=== PATIENT | female | born 1975 | race Caucasian/White ===

== ENCOUNTER 2016-11-06 14:26 | Inpatient (IN) | payer OTHER ==
[2016-11-06 14:35] VITALS: BMI 35.6
[2016-11-06 16:54] LABS: BASOPHIL 0.4 % (0-2.0); EOSINOPHIL 0.6 % (0-4.5); MCH 24.2 pg (25.7-33.7); MCHC 30.6 g/dl (32.0-36.0); MEAN CELL VOLUME 79.1 fl (80-96); MEAN PLT VOLUME 8.6 fl (7.5-11.1); NEUTROPHILS 77.9 % (42.8-82.8); PLATELET COUNT 257 K/MM3 (134-434); RDW 16.2 % (11.6-15.6); WHITE BLOOD COUNT 13.4 K/mm3 (4.0-10.0)
[2016-11-06] MEDS ORDERED: SODIUM CHLORIDE 1,000 ML IV STA (16:58)
--- NOTE | 2016-11-06 16:58 | PDOC ---
History of Present Illness - General History Source: Patient, Old Records Exam Limitations: No Limitations <Mor Dhillon - Last Filed: 11/06/16 22:43> - History of Present Illness Initial Comments: 11/06/16 17:38 The patient is a 41 year old female, with a significant past medical history of cholecystectomy and pancreatitis, who presents to the emergency department sent by Dr. Gao for persistent abdominal pain since her discharge from the ED for similar complaint on 11/01/16. The patient states her pain is sharp and intermittent but reports the pain has been persistent in severity since her onset of pain about a week ago. The patient states her pain travels around her abdomen, and reports feeling both nauseous and bloated today. The patient was concerned about her pain and was seen at her PCP office where Dr. Gao referred the patient to the ED for further work-up to r.o appendicitis. She denies chest pain, shortness of breath, headache and dizziness. She denies fever, chills, vomit, diarrhea and constipation. She denies dysuria, frequency, urgency and hematuria. Allergies: Penicillins Past surgical history: cholecystectomy Social history: denies toxic habits PCP - Dr. Crockett <Shagufta Rodriguez - Last Filed: 11/07/16 00:21> - General Chief Complaint: Pain Stated Complaint: ABD PAIN (PCP SENT) Time Seen by Provider: 11/06/16 16:04 Past History - Past Medical History Anemia: No Asthma: No Cancer: No Cardiac Disorders: No CVA: No COPD: No CHF: No Dementia: No Diabetes: No GI Disorders: No Disorders: No HTN: No Hypercholesterolemia: No Liver Disease: No Psychiatric Problems: Yes (depression,anxiety,bipolar) Seizures: No - Surgical History Abdominal Surgery: No Appendectomy: No Cardiac Surgery: No Cholecystectomy: Yes Neurologic Surgery: No Orthopedic Surgery: No - Immunization History Immunization Up to Date: Yes - Psycho/Social/Smoking Cessation Hx Anxiety: Yes Suicidal Ideation: No Smoking Status: No Smoking History: Never smoked Have you smoked in the past 12 months: No Number of Cigarettes Smoked Daily: 0 Hx Alcohol Use: Yes (SOCIAL) Drug/Substance Use Hx: No Substance Use Type: Alcohol Hx Substance Use Treatment: No <Mor Dhillon - Last Filed: 11/06/16 22:43> <Shagufta Rodriguez - Last Filed: 11/07/16 00:21> - Past Medical History Allergies/Adverse Reactions: Allergies Allergy/AdvReac Type Severity Reaction Status Date / Time Penicillins Allergy Rash Verified 11/06/16 14:35 Home Medications: Ambulatory Orders Lamotrigine [Lamictal] 200 mg PO DAILY 01/10/13 BUPROPion HCL [Wellbutrin] 75 mg PO DAILY 06/20/13 Fluoxetine HCl [Prozac] 20 mg PO DAILY 06/21/13 Review of Systems - Review of Systems Able to Perform ROS?: Yes Comments:: 11/06/16 17:39 GENERAL/CONSTITUTIONAL: No fever or chills. No weakness. HEAD, EYES, EARS, NOSE AND THROAT: No change in vision. No ear pain or discharge. No sore throat. CARDIOVASCULAR: No chest pain or shortness of breath. RESPIRATORY: No cough, wheezing, or hemoptysis. GASTROINTESTINAL:(+) Abdominal pain. No nausea, vomiting, diarrhea or constipation. GENITOURINARY: No dysuria, frequency, or change in urination. MUSCULOSKELETAL: No joint or muscle swelling or pain. No neck or back pain. SKIN: No rash NEUROLOGIC: No headache, vertigo, loss of consciousness, or change in strength/ sensation. ENDOCRINE: No increased thirst. No abnormal weight change. HEMATOLOGIC/LYMPHATIC: No anemia, easy bleeding, or history of blood clots. ALLERGIC/IMMUNOLOGIC: No hives or skin allergy. <Shagufta Rodriguez - Last Filed: 11/07/16 00:21> *Physical Exam - Vital Signs Last Vital Signs Temp Pulse Resp BP Pulse Ox 99.0 F 68 20 108/49 100 11/06/16 14:32 11/06/16 14:32 11/06/16 14:32 11/06/16 14:32 11/06/16 14:32 <Mor Dhillon - Last Filed: 11/06/16 22:43> - Vital Signs Last Vital Signs Temp Pulse Resp BP Pulse Ox 99.0 F 68 20 108/49 100 11/06/16 14:32 11/06/16 14:32 11/06/16 14:32 11/06/16 14:32 11/06/16 14:32 - Physical Exam Comments: 11/06/16 17:41 GENERAL: Awake, alert, and fully oriented, in no acute distress HEAD: No signs of trauma EYES: PERRLA, EOMI, sclera anicteric, conjunctiva clear ENT: Auricles normal inspection, hearing grossly normal, nares patent, oropharynx clear without exudates. Moist mucosa NECK: Normal ROM, supple, no lymphadenopathy, JVD, or masses LUNGS: Breath sounds equal, clear to auscultation bilaterally. No wheezes, and no crackles HEART: Regular rate and rhythm, normal S1 and S2, no murmurs, rubs or gallops ABDOMEN: (+) Right middle abdominal tenderness to palpation. Soft, normoactive bowel sounds. No guarding, no rebound. No masses EXTREMITIES: Normal range of motion, no edema. No clubbing or cyanosis. No cords, erythema, or tenderness NEUROLOGICAL: Cranial nerves II-XII intact. Normal speech, normal gait. Sensation intact in upper and lower extremities. 5/5 motor strength in upper and lower extremities. No pronator drift. Finger to nose intact. Rapid alternations intact. SKIN: Warm, Dry, normal turgor, no rashes or lesions noted. <Shagufta Rodriguez - Last Filed: 11/07/16 00:21> ED Treatment Course - LABORATORY CBC & Chemistry Diagram: 11/06/16 16:23 11/06/16 16:23 - RADIOLOGY Radiology Studies Ordered: Category Date Time Status ABDOMEN & PELVIS CT WITH CONTR [CT] Stat CT Scan 11/06/16 16:31 Ordered <Mor Dhillon - Last Filed: 11/06/16 22:43> - LABORATORY CBC & Chemistry Diagram: 11/06/16 16:23 11/06/16 16:23 - ADDITIONAL ORDERS Additional order review: Laboratory Results 11/06/16 16:23 Serum , Qual Negative Urine Color Yellow Urine Appearance Slcloudy Urine pH 5.0 Ur Specific [place] 1.028 Urine Protein 1+ H Urine Glucose (UA) Negative Urine Ketones Negative Urine Blood Negative Urine Nitrite Negative Urine Bilirubin Negative Urine Urobilinogen Negative Ur Leukocyte Esterase Negative Urine RBC 2 Urine WBC 1 Ur Epithelial Cells Few Urine Bacteria Few Granular Casts 1 Urine Mucus Few 11/06/16 16:23 RBC 4.74 MCV 79.1 L MCHC 30.6 L RDW 16.2 H MPV 8.6 Neutrophils % 77.9 Lymphocytes % 15.5 D Monocytes % 5.6 Eosinophils % 0.6 Basophils % 0.4 - RADIOLOGY Radiograph Interpretation: 11/06/16 22:[address] was read by Dr. Hinton at 21:34 Impression: Interval status post cholecystectomy. There is no evidence of acute appendicitis. No evidence of colitis. No free air or free fluid in the abdomen. <Shagufta Rodriguez - Last Filed: 11/07/16 00:21> Medical Decision Making - Medical Decision Making 11/06/16 16:56 A portion of this note was documented by scribe services under my direction. I have reviewed the details of the note, within reason, and agree with the documentation with the following case summary and management plan written by me. Patient treated in the ED. Nursing notes are reviewed and incorporated into the medical decision-making. Vital signs reviewed. Peripheral IV access obtained by the nurse, laboratory studies are drawn and sent, reviewed and interpreted by myself. Vital Signs Temp Pulse Resp BP Pulse Ox 99.0 F 68 20 108/49 100 11/06/16 14:32 11/06/16 14:32 11/06/16 14:32 11/06/16 14:32 11/06/16 14:32 41 year old female with past medical history of cholecystectomy, pancreatitis presents to the ED from Dr. Nirmal Becerril's office for CT abdomen and pelvis to r /o appendicitis. The patient was seen here several days ago with abdominal pain. She had a negative workup and the patient was discharged home. Continued to have persistent pain. She saw Dr. Becerril who obtained an ultrasound. Demonstrated an elevated CBD. Pt was sent to the ED. Denies fevers, chills. Repots persistent pain. Will obtain CT scan of abdomen and pelvis to r/o appy. However, must consider this elevated CBD and may need MRCP, if CT scan demonstrates no acute findings. Labs, IVF, and reassess. 11/06/16 22:43 CBC, BMP 11/06/16 16:23 11/06/16 16:23 CMP Sodium 138 mmol/L (136-145) 11/06/16 16:23 Potassium 4.1 mmol/L (3.5-5.1) 11/06/16 16:23 Chloride 104 mmol/L (98-107) 11/06/16 16:23 Carbon Dioxide 25 mmol/L (21-32) 11/06/16 16:23 Anion Gap 9 (8-16) 11/06/16 16:23 BUN 17 mg/dL (7-18) 11/06/16 16:23 Creatinine 0.9 mg/dL (0.55-1.02) 11/06/16 16:23 Creat Clearance w eGFR > 60 (>60) 11/06/16 16:23 Random Glucose 102 mg/dL (74-106) D 11/06/16 16:23 Calcium 9.1 mg/dL (8.5-10.1) 11/06/16 16:23 Total Bilirubin 0.4 mg/dL (0.2-1.0) D 11/06/16 16:23 AST 43 U/L (15-37) H D 11/06/16 16:23 ALT 105 U/L (12-78) H D 11/06/16 16:23 Alkaline Phosphatase 175 U/L (45-117) H D 11/06/16 16:23 Total Protein 8.0 g/dl (6.4-8.2) 11/06/16 16:23 Albumin 3.6 g/dl (3.4-5.0) 11/06/16 16:23 Lipase 166 U/L (73-393) 11/06/16 16:23 Serum , Qual Negative 11/06/16 16:23 Urine Test Results Urine Color Yellow 11/06/16 16:23 Urine Appearance Slcloudy 11/06/16 16:23 Urine pH 5.0 (5.0-8.0) 11/06/16 16:23 Ur Specific [place] 1.028 (1.001-1.035) 11/06/16 16:23 Urine Protein 1+ (NEGATIVE) H 11/06/16 16:23 Urine Glucose (UA) Negative (NEGATIVE) 11/06/16 16:23 Urine Ketones Negative (NEGATIVE) 11/06/16 16:23 Urine Blood Negative (NEGATIVE) 11/06/16 16:23 Urine Nitrite Negative (NEGATIVE) 11/06/16 16:23 Urine Bilirubin Negative (NEGATIVE) 11/06/16 16:23 Ur Leukocyte Esterase Negative (NEGATIVE) 11/06/16 16:23 Urine RBC 2 /hpf (0-3) 11/06/16 16:23 Urine WBC 1 /hpf (3-5) 11/06/16 16:23 Ur Epithelial Cells Few /hpf (FEW) 11/06/16 16:23 Urine Bacteria Few /hpf (NONE SEEN) 11/06/16 16:23 Urine Mucus Few 11/06/16 16:[address] scan demonstrates no acute findings. However, the patient does have slightly elevated LFTs and a slightly increasing WBC and an elevated CBD. Will admit for further GI workup and MRCP. Case discussed with Dr. Feng who accepted the patient to med/surg admission. Case discussed in detail with admitting physician including history, physical exam and ancillary studies. Admitting physician has assumed care for the patient, will follow all pending diagnostics and will complete the evaluation and treatment. <Mor Dhillon - Last Filed: 11/06/16 22:43> - Medical Decision Making 11/06/16 22:22 Dr. Crockett was paged through the phone answering service at 22:19. I was informed that Dr. Feng is covering and will be returning the call. <Shagufta Rodriguez - Last Filed: 11/07/16 00:21> *DC/Admit/Observation/Transfer - Discharge Dispostion Admit: Yes <Mor Dhillon - Last Filed: 11/06/16 22:43> - Attestations Scribe Attestion: 11/06/16 17:42 Documentation prepared by Shagufta Rodriguez, acting as medical registrar for Mor Dhillon MD, MD <Shagufta Rodriguez - Last Filed: 11/07/16 00:21> Diagnosis at time of Disposition: Abdominal pain Qualifiers: Abdominal location: unspecified location Qualified Code(s): R10.9 - Unspecified abdominal pain - Referrals Referrals: Jared Crockett MD [Primary Care Provider] -
[2016-11-06 17:05] LABS: URINE APPEARANCE SLCLOUDY; URINE BILIRUBIN NEGATIVE (NEGATIVE); URINE BLOOD NEGATIVE (NEGATIVE); URINE COLOR YELLOW; URINE GLUCOSE (UA) NEGATIVE (NEGATIVE); URINE KETONE NEGATIVE (NEGATIVE); URINE LEUK ESTERASE NEGATIVE (NEGATIVE); URINE NITRITE NEGATIVE (NEGATIVE); URINE UROBILINOGEN NEGATIVE E.U./dl (0.2-1.0)
[2016-11-06 17:06] LABS: URINE PROTEIN 1+ (NEGATIVE)
[2016-11-06 17:08] LABS: GRANULAR CASTS 1 /lpf; URINE BACTERIA FEW /hpf (NONE SEEN); URINE MUCUS FEW; URINE RBC 2 /hpf (0-3); URINE WBC 1 /hpf (3-5)
[2016-11-06 18:14] LABS: ALBUMIN 3.6 g/dl (3.4-5.0); ANION GAP 9 (8-16); BILIRUBIN,TOTAL 0.4 mg/dL (0.2-1.0); CALCIUM 9.1 mg/dL (8.5-10.1); CO2 25 mmol/L (21-32); CREATININE 0.9 mg/dL (0.55-1.02); GLUCOSE,RANDOM 102 mg/dL (74-106); SGOT/AST 43 U/L (15-37); SGPT/ALT 105 U/L (12-78)
[2016-11-06 18:15] LABS: ALK PHOS 175 U/L (45-117)
[2016-11-07] MEDS ORDERED: ONDANSETRON 4 MG/2 ML VIAL IVPB PRN (00:06)
[2016-11-07] MEDS: LEVOFLOXACIN 500 MG IVPB 100 ML IVPB SCH ×2 (00:53→12:40)
[2016-11-07] MEDS ORDERED: LEVOFLOXACIN 500 MG IVPB 100 ML IVPB ONE (00:54)
[2016-11-07] MEDS: morphine CARPU-JECT 2 MG/1 ML DISP.SYRIN IVPB PRN (02:05)
[2016-11-07] MEDS: SODIUM CHLORIDE 1,000 ML IV SCH ×2 (02:18→19:10)
[2016-11-07] MEDS: METRONIDAZOLE 500 MG PREMIXED 100 ML IVPB SCH ×3 (02:18→19:10)
--- NOTE | 2016-11-07 09:02 | HP ---
Admitting History and Physical - Primary Care Physician PCP: Jared Crockett - Admission Chief Complaint: Abdominal pain for 1 week History of Present Illness: Pain came to ER on 11/01/16 for abdominal pain mostly epigastricwith some radiation o the back. WBC was 11,000 but liver chem were WNL. A CXR was done. Pain persisted and abdominal sonogram yesterday AM showed dilitation of CBD; when she saw GI MD later in the day she was in a lot of pain and he sent her t ER where all liver chemistries were elevated and WBC 13,400. Probable Dx: Acute Choledocholithiasis. History Source: Patient Limitations to Obtaining History: No Limitations - Past Medical History Gastrointestinal: Yes: Diverticulitis, Diverticulosis, Pancreatitis Hepatobiliary: Yes: Cholelithiasis ...LMP: 06/11/13 ...: 0 ...Para: 0 Psych: Yes: Depression - Past Surgical History Past Surgical History: Yes: Cholecystectomy (lap) - Smoking History Smoking history: Never smoked Have you smoked in the past 12 months: No Aproximately how many cigarettes per day: 0 - Alcohol/Substance Use Hx Alcohol Use: Yes (SOCIAL) Home Medications - Allergies Allergies/Adverse Reactions: Allergies Allergy/AdvReac Type Severity Reaction Status Date / Time Penicillins Allergy Rash Verified 11/06/16 14:35 - Home Medications Home Medications: Ambulatory Orders Lamotrigine [Lamictal] 200 mg PO DAILY 01/10/13 BUPROPion HCL [Wellbutrin] 75 mg PO DAILY 06/20/13 Fluoxetine HCl [Prozac] 20 mg PO DAILY 06/21/13 Family Disease History - Family Disease History Family Disease History: Diabetes: Mother, Sister, Heart Disease: Brother ([place]), [place]: Father (gastric) Review of Systems - Review of Systems Constitutional: reports: Loss of Appetite. denies: Chills Cardiovascular: reports: No Symptoms Respiratory: reports: No Symptoms Gastrointestinal: reports: Abdominal Pain, Bloating, Nausea Genitourinary: reports: No Symptoms Breasts: reports: No Symptoms Reported Musculoskeletal: reports: No Symptoms Integumentary: reports: No Symptoms Neurological: reports: No Symptoms Psychiatric: reports: Anxiety Pain Intensity: 5 Physical Examination Vital Signs: Vital Signs Temperature 98.6 F 11/07/16 06:00 Pulse Rate 70 11/07/16 06:00 Respiratory Rate 18 11/07/16 06:00 Blood Pressure 119/64 11/07/16 06:00 O2 Sat by Pulse Oximetry (%) 99 11/07/16 01:04 Constitutional: Yes: Anxious Eyes: Yes: Conjunctiva Clear Cardiovascular: Yes: Regular Rate and Rhythm Respiratory: Yes: Regular Gastrointestinal: Yes: Hyperactive Bowel Sounds, Tenderness, Epigastrium (slight ). No: Pulsatile Mass Renal/: No: CVA Tenderness - Right Extremities: Yes: WNL Edema: No Integumentary: Yes: WNL Neurological: Yes: Alert, Oriented Imaging - Results Cat Scan: Report Reviewed Ultrasound: Report Reviewed Problem List - Problems (1) Abdominal pain Assessment/Plan: With elevated liver chem probably due to Acute choledocholithiasis Code(s): R10.9 - UNSPECIFIED ABDOMINAL PAIN Qualifiers: Abdominal location: unspecified location Qualified Code(s): R10.9 - Unspecified abdominal pain (2) Anxiety Assessment/Plan: with depression and on Rx Code(s): F41.9 - ANXIETY DISORDER, UNSPECIFIED (3) Choledocholithiasis Assessment/Plan: Acute; S/P lap Cholecystectomy Liver chem high; past hx of Pancreatitis with acute cholecystitis to repeat lab GI MD on consult Code(s): K80.50 - CALCULUS OF BILE DUCT W/O CHOLANGITIS OR CHOLECYST W/O OBST
[2016-11-07] MEDS: FLUoxetine HCL 20 MG CAPSULE (FP) PO SCH (11:03)
[2016-11-07] MEDS: PANTOPRAZOLE 40 MG TABLET (FP) PO SCH (11:03)
[2016-11-07 11:32] LABS: BASOPHIL 0.6 % (0-2.0); EOSINOPHIL 0.6 % (0-4.5); MCH 25.3 pg (25.7-33.7); MCHC 31.9 g/dl (32.0-36.0); MEAN CELL VOLUME 79.3 fl (80-96); MEAN PLT VOLUME 8.6 fl (7.5-11.1); NEUTROPHILS 77.1 % (42.8-82.8); PLATELET COUNT 228 K/MM3 (134-434); RDW 16.3 % (11.6-15.6); WHITE BLOOD COUNT 9.9 K/mm3 (4.0-10.0)
[2016-11-07 11:58] LABS: ALBUMIN 3.3 g/dl (3.4-5.0); BILIRUBIN,TOTAL 0.4 mg/dL (0.2-1.0); TOT PROT 7.8 g/dl (6.4-8.2)
[2016-11-07 12:11] LABS: BILIRUBIN,DIRECT 0.1 mg/dL (0.0-0.2)
[2016-11-07] MEDS: lamoTRIgine 100 MG TABLET (FP) PO SCH (12:40)
[2016-11-07] MEDS: buPROPion HCL 75 MG TABLET PO SCH (12:40)
--- NOTE | 2016-11-07 12:49 | CONSULT ---
Consult Consult Specialty:: GI Referred by:: Dr. Jared Crockett Reason for Consultation:: Abdominal pain - History of Present Illness Chief Complaint: Abdominal pain History of Present Illness: 41F seen in office yesterday for evaluation of vague abdominal pain (mid/upper/ lower) that radiated to the flanks bilaterally. This began to occur on 11/01 prompting an ER evaluation. Labs at the time revealed a leukocytosis. She was sent home but describes having continued pain throughout the weekend. She had an Abdominal US performed yesterday that revealed a 10mm CBD and mildly dilated intrahepatic ducts. When I saw her in the office yesterday I was able to elicit tenderness to palpation predominantly in the RLQ / periumbilical region and sent her to the ER for further evalution. In the ER yesterday, CT scan revealed a right overian cyst but failed to reveal any acute pathology. her appendix appeared normal. She still had a leukocytosis and her transaminases as well as alkaline phosphatase were elevated. She has a history of gallstone pancreatitis in 2012. She had choledocholithiasis and underwent ERCP performed by Dr. Sheikh that led to the removal of CBD stones. The then underwent laparoscopic cholecystectomy. Ms. Quiles described the current pain episodes as being remniscent of he gallbladder pain. She describes having recently lost 30 pounds intentionally over the last few months but did increase her fatty food intake over the holiday season. - History Source History Provided By: Patient Limitations to Obtaining History: No Limitations - Past Medical History Gastrointestinal: Yes: Diverticulitis, Diverticulosis, Pancreatitis (gallstone, with choledocholithiasis s/p ERCP) Hepatobiliary: Yes: Cholelithiasis ...LMP: 06/11/13 Psych: Yes: Depression - Past Surgical History Past Surgical History: Yes: Cholecystectomy (lap) - Alcohol/Substance Use Hx Alcohol Use: Yes (SOCIAL) - Smoking History Smoking history: Never smoked Have you smoked in the past 12 months: No Aproximately how many cigarettes per day: 0 - Social History Usual Living Arrangement: With Spouse ADL: Independent Occupation: technology and engineering teacher Place of : [facility] History of Recent Travel: No Home Medications - Allergies Allergies/Adverse Reactions: Allergies Allergy/AdvReac Type Severity Reaction Status Date / Time Penicillins Allergy Rash Verified 11/06/16 14:35 - Home Medications Home Medications: Ambulatory Orders Lamotrigine [Lamictal] 200 mg PO DAILY 01/10/13 BUPROPion HCL [Wellbutrin] 75 mg PO DAILY 06/20/13 Fluoxetine HCl [Prozac] 20 mg PO DAILY 06/21/13 Family Disease History - Family Disease History Family Disease History: Diabetes: Mother, Sister, Heart Disease: Brother ([place]), [place]: Father (gastric) Review of Systems - Review of Systems Constitutional: denies: Chills Cardiovascular: denies: Chest Pain Respiratory: denies: SOB Gastrointestinal: reports: Abdominal Pain Physical Exam-GI Vital Signs: Vital Signs Temperature 98.6 F 11/07/16 06:00 Pulse Rate 76 11/07/16 09:00 Respiratory Rate 20 11/07/16 09:00 Blood Pressure 114/65 11/07/16 09:00 O2 Sat by Pulse Oximetry (%) 99 11/07/16 01:04 Constitutional: Yes: Calm Eyes: No: Sclera Icterus Cardiovascular: Yes: Regular Rate and Rhythm Respiratory: Yes: CTA Bilaterally. No: Diminished Gastrointestinal Inspection: No: Distention ...Auscultate: Yes: Normoactive Bowel Sounds ...Palpate: Yes: Tenderness (Mild TTP LUQ / epigastrium) ...Percussion: No: Tympanitic Edema: No Neurological: Yes: Alert, Oriented Labs: CBC, BMP 11/07/16 11:15 Hepatic Panel Total Bilirubin 0.4 mg/dL (0.2-1.0) 11/07/16 11:15 Direct Bilirubin 0.1 mg/dL (0.0-0.2) D 11/07/16 11:15 AST 24 U/L (15-37) D 11/07/16 11:15 ALT 77 U/L (12-78) D 11/07/16 11:15 Alkaline Phosphatase 149 U/L (45-117) H 11/07/16 11:15 Albumin 3.3 g/dl (3.4-5.0) L 11/07/16 11:15 Laboratory Tests 11/06/16 16:23 AST 43 H D ALT 105 H D Alkaline Phosphatase 175 H D Imaging - Results Cat Scan: Report Reviewed, Image Reviewed Ultrasound: Report Reviewed Problem List - Problems (1) Abdominal pain Assessment/Plan: Pain is vague in nature however LFTs have risen transiently and she has a leukocytosis. I explained to Ms. Quiles that the possibility of a retained CBD stone would need to be considered. because of this I have advised the following : - MRCP - Discussed the possibility of repeat ERCP to further evaluate CBD. I discussed potential risks of the procedure with Ms. Quiles and her , who was present bedside, like but not limited to bleeding, perforation requiring surgery to repair, infection and sedation medication effects all of which could be potentially life threatening. She has agreed to the procedure if it was felt to be medically necessary Monitor LFTs Abx for now Code(s): R10.9 - UNSPECIFIED ABDOMINAL PAIN Qualifiers: Abdominal location: unspecified location Qualified Code(s): R10.9 - Unspecified abdominal pain
[2016-11-08] MEDS: morphine CARPU-JECT 2 MG/1 ML DISP.SYRIN IVPB PRN ×4 (02:27→21:29)
[2016-11-08] MEDS: METRONIDAZOLE 500 MG PREMIXED 100 ML IVPB SCH ×3 (02:50→19:27)
[2016-11-08] MEDS: SODIUM CHLORIDE 1,000 ML IV SCH (05:12)
[2016-11-08 08:02] LABS: BASOPHIL 0.4 % (0-2.0); EOSINOPHIL 1.1 % (0-4.5); MCH 25.6 pg (25.7-33.7); MCHC 32.4 g/dl (32.0-36.0); MEAN CELL VOLUME 79.2 fl (80-96); MEAN PLT VOLUME 9.2 fl (7.5-11.1); NEUTROPHILS 66.8 % (42.8-82.8); PLATELET COUNT 188 K/MM3 (134-434); RDW 16.8 % (11.6-15.6); WHITE BLOOD COUNT 8.3 K/mm3 (4.0-10.0)
[2016-11-08 08:15] LABS: AMYLASE 60 U/L (25-115); CALCIUM 8.5 mg/dL (8.5-10.1)
[2016-11-08 08:31] LABS: ALBUMIN 2.9 g/dl (3.4-5.0); ALK PHOS 115 U/L (45-117); ANION GAP 7 (8-16); BILIRUBIN,TOTAL 0.4 mg/dL (0.2-1.0); CO2 25 mmol/L (21-32); CREATININE 0.8 mg/dL (0.55-1.02); GLUCOSE,RANDOM 86 mg/dL (74-106); SGOT/AST 17 U/L (15-37); SGPT/ALT 52 U/L (12-78); TOT PROT 6.5 g/dl (6.4-8.2)
--- NOTE | 2016-11-08 10:01 | PN ---
Progress Note (short form) - Note Progress Note: Pt had some RUQ pain overnite MRI: Filling defect noted in CBD Probable ERCP today at 11AM On Exam: Vital Signs Period Temp Pulse Resp BP Sys/Haq Pulse Ox Last 24 Hr 98.1 F-98.2 F 65-81 18-20 98-118/45-79 99 Alert Anxious Chest: Clear Cor Reg Abd: Increased bowel sounds Slight RUQ tenderness Abnormal Lab Results 11/07/16 11/07/16 11/08/16 11:15 11:15 06:00 Hgb 10.5 L MCV 79.3 L 79.2 L MCHC 31.9 L RDW 16.3 H 16.8 H Chloride Anion Gap Alkaline Phosphatase 149 H Albumin 3.3 L 11/08/16 06:00 Hgb MCV MCHC RDW Chloride 108 H Anion Gap 7 L Alkaline Phosphatase Albumin 2.9 L Imp: Acute Choledocholithiasis Anxiety and Depression on Rx Plan: Stat EKG INR Pending report she has no medical contraindications for ERCP. Problem List - Problems (1) Abdominal pain Code(s): R10.9 - UNSPECIFIED ABDOMINAL PAIN Qualifiers: Abdominal location: unspecified location Qualified Code(s): R10.9 - Unspecified abdominal pain (2) Anxiety Code(s): F41.9 - ANXIETY DISORDER, UNSPECIFIED (3) Choledocholithiasis Code(s): K80.50 - CALCULUS OF BILE DUCT W/O CHOLANGITIS OR CHOLECYST W/O OBST
[2016-11-08] MEDS: LEVOFLOXACIN 500 MG IVPB 100 ML IVPB SCH (10:19)
[2016-11-08] MEDS ORDERED: PT OWN MED DRAWER 7, Y5N ONE (10:21)
[2016-11-08] MEDS: lamoTRIgine 100 MG TABLET (FP) PO SCH (10:23)
[2016-11-08] MEDS: buPROPion HCL 75 MG TABLET PO SCH (10:23)
[2016-11-08] MEDS: FLUoxetine HCL 20 MG CAPSULE (FP) PO SCH (10:23)
[2016-11-08] MEDS: PANTOPRAZOLE 40 MG TABLET (FP) PO SCH (10:23)
[2016-11-08] MEDS ORDERED: PROPOFOL 20 ML ONE (10:25)
[2016-11-08] MEDS ORDERED: MIDAZOLAM HCL 2 MG/2 ML SINGLE DOSE VIAL ONE (10:25)
[2016-11-08] MEDS ORDERED: ROCURONIUM BROMIDE 50 MG/5 ML VIAL ONE (10:25)
[2016-11-08] MEDS ORDERED: LIDOCAINE HCL/PF 1% SDV 5ML VIAL ONE ×2 (10:25→10:31)
[2016-11-08] MEDS ORDERED: SUCCINYLCHOLINE CHLORIDE 200 MG/10 ML VIAL ONE (10:26)
[2016-11-08] MEDS ORDERED: GLYCOPYRROLATE 0.2 MG/1 ML VIAL ONE ×3 (10:26)
[2016-11-08 12:06] LABS: INR 1.25 (0.82-1.09); PROTHROMBIN TIME (PATIENT) 13.8 SEC (9.98-11.88)
--- NOTE | 2016-11-08 12:14 | EKG ---
Test Reason : Blood Pressure : / mmHG Vent. Rate : 064 BPM Atrial Rate : 064 BPM P-R Int : 138 ms QRS Dur : 080 ms QT Int : 424 ms P-R-T Axes : 061 048 045 degrees QTc Int : 437 ms NORMAL SINUS RHYTHM NORMAL ECG WHEN COMPARED WITH ECG OF 20-JUN-2013 19:17, T WAVE INVERSION NO LONGER EVIDENT IN ANTERIOR LEADS Confirmed by HUBERT BARAJAS MD ([id number]) on 11/08/2016 12:13:51 PM Referred By: SANJUANA KEANE Confirmed By:HUBERT BARAJAS MD
[2016-11-08] MEDS ORDERED: ONDANSETRON 4 MG/2 ML VIAL ONE (13:03)
--- NOTE | 2016-11-08 13:06 | PN ---
Progress Note (short form) - Note Progress Note: ERCP procedure note: Please see procedure report. 2 small stones found in CBD. After extension of sphincterotomy 2 stones were extracted using extraction balloon. Attempts to place a protective pancreatic stent were unsuccessful. Will need to observe for pancreatitis.
[2016-11-08] MEDS ORDERED: IOHEXOL 300 MG/ML INFUS..BTL IV ONE (13:29)
[2016-11-08] MEDS ORDERED: LACTATED RINGERS SOLUTION 1,000 ML IV SCH ×2 (13:30→21:30)
[2016-11-08] MEDS ORDERED: INDOMETHACIN 50 MG RECTAL SUPPOSITORY PR ONE (16:11)
[2016-11-09] MEDS: SODIUM CHLORIDE 1,000 ML IV SCH (00:30)
[2016-11-09] MEDS ORDERED: LACTATED RINGERS SOLUTION 1,000 ML IV SCH ×2 (01:30→08:00)
[2016-11-09] MEDS: morphine CARPU-JECT 2 MG/1 ML DISP.SYRIN IVPB PRN (01:46)
[2016-11-09] MEDS: METRONIDAZOLE 500 MG PREMIXED 100 ML IVPB SCH ×3 (02:43→18:47)
[2016-11-09 07:22] LABS: BASOPHIL 0.4 % (0-2.0); EOSINOPHIL 0.7 % (0-4.5); MCH 25.6 pg (25.7-33.7); MCHC 32.3 g/dl (32.0-36.0); MEAN CELL VOLUME 79.2 fl (80-96); NEUTROPHILS 72.9 % (42.8-82.8); PLATELET COUNT 173 K/MM3 (134-434); RDW 16.2 % (11.6-15.6); WHITE BLOOD COUNT 10.3 K/mm3 (4.0-10.0)
[2016-11-09 07:42] LABS: C-REACTIVE PROTEIN 3.3 MG/DL (0.00-0.3)
[2016-11-09 07:49] LABS: ALBUMIN 2.7 g/dl (3.4-5.0); ANION GAP 10 (8-16); CALCIUM 8.2 mg/dL (8.5-10.1); CO2 25 mmol/L (21-32); GLUCOSE,RANDOM 85 mg/dL (74-106); SGOT/AST 15 U/L (15-37); SGPT/ALT 37 U/L (12-78)
[2016-11-09 07:52] LABS: ALK PHOS 98 U/L (45-117); BILIRUBIN,TOTAL 0.5 mg/dL (0.2-1.0); CREATININE 0.7 mg/dL (0.55-1.02); TOT PROT 5.8 g/dl (6.4-8.2)
--- NOTE | 2016-11-09 11:09 | PN ---
Progress Note, Physician Chief Complaint: Had ERCP yesterday. Not much appetite today; feels some RUQ pain today and feels puffy and bloated. History of Present Illness: Patient with Acute choledocholithiasis had ERCP yesterday and 2 stones were recovered and sphincterotomy was performed. She is doing OK but did not have much of an appetite and some feeling of bloating and puffiness probably due to IV Rx. Some RUQ tenderness but tolerable. Pancreas enzymes stable. - Current Medication List Current Medications: Active Medications Bupropion HCl (Wellbutrin -) 75 mg PO DAILY [facility] Last Admin: 11/08/16 10:23 Dose: 75 mg Fluoxetine HCl (Prozac -) 20 mg PO DAILY [facility] Last Admin: 11/08/16 10:23 Dose: 20 mg Sodium Chloride (Normal Saline -) 1,000 mls @ 75 mls/hr IV ASDIR [facility] Last Admin: 11/09/16 00:30 Dose: Not Given Metronidazole (Flagyl 500mg Premixed Ivpb -) 100 mls @ 100 mls/hr IVPB Q8H-IV [facility] Last Admin: 11/09/16 02:43 Dose: 100 mls/hr Levofloxacin (Levaquin 500 Mg Premixed Ivpb -) 100 mls @ 100 mls/hr IVPB DAILY [facility] Last Admin: 11/08/16 10:19 Dose: 100 mls/hr Lactated Ringer's (Lactated Ringers Solution) 1,000 mls @ 75 mls/hr IV ASDIR [facility] Stop: 11/12/16 07:59 Lamotrigine (Lamictal -) 200 mg PO DAILY [facility] Last Admin: 11/08/16 10:23 Dose: 200 mg Morphine Sulfate (Morphine Injection -) 1 mg IVPB Q3H PRN PRN Reason: PAIN Last Admin: 11/09/16 01:46 Dose: 1 mg Ondansetron HCl (Zofran Injection) 4 mg IVPB Q6H PRN PRN Reason: NAUSEA Pantoprazole Sodium (Protonix -) 40 mg PO DAILY [facility] Last Admin: 11/08/16 10:23 Dose: 40 mg - Objective Vital Signs: Vital Signs Temperature 97.9 F 11/09/16 05:33 Pulse Rate 75 11/09/16 05:33 Respiratory Rate 18 11/09/16 05:33 Blood Pressure 115/62 11/09/16 05:33 O2 Sat by Pulse Oximetry (%) 99 11/08/16 21:40 Constitutional: Yes: Calm, Pallor Eyes: No: Sclera Icterus Cardiovascular: Yes: Regular Rate and Rhythm Respiratory: Yes: Regular Gastrointestinal: Yes: Distention, Hypoactive Bowel Sounds, Tenderness (RUQ) Extremities: Yes: WNL Edema: LLE: Trace, RLE: Trace Neurological: Yes: Alert, Oriented Labs: CBC, BMP 11/09/16 06:00 11/09/16 06:00 INR, PTT INR 1.25 (0.82-1.09) H 11/08/16 10:15 Problem List - Problems (1) Acute cholangitis due to calculus of bile duct with obstruction Assessment/Plan: On Antibiotics and liver and pancreas enzymes stable post ERCP. Code(s): K80.37 - CALCULUS OF BILE DUCT W ACUTE AND CHRONIC CHOLANGITIS W OBST (2) Abdominal pain Assessment/Plan: Still has some RUQ abdominal discomfort. Code(s): R10.9 - UNSPECIFIED ABDOMINAL PAIN Qualifiers: Abdominal location: unspecified location Qualified Code(s): R10.9 - Unspecified abdominal pain (3) Anxiety Assessment/Plan: Stable on current Rx. Code(s): F41.9 - ANXIETY DISORDER, UNSPECIFIED (4) Choledocholithiasis Assessment/Plan: @ 2 calculi removed via ERCP yesterday. F/U pancreas enzymes ordered Code(s): K80.50 - CALCULUS OF BILE DUCT W/O CHOLANGITIS OR CHOLECYST W/O OBST
[2016-11-09] MEDS ORDERED: PT OWN MED DRAWER 7, Y5N ONE (12:27)
[2016-11-09] MEDS: LEVOFLOXACIN 500 MG IVPB 100 ML IVPB SCH (12:30)
[2016-11-09] MEDS: buPROPion HCL 75 MG TABLET PO SCH (12:30)
[2016-11-09] MEDS: FLUoxetine HCL 20 MG CAPSULE (FP) PO SCH (12:30)
[2016-11-09] MEDS: PANTOPRAZOLE 40 MG TABLET (FP) PO SCH (12:30)
[2016-11-09] MEDS: lamoTRIgine 100 MG TABLET (FP) PO SCH (12:31)
[2016-11-09] MEDS: LACTATED RINGERS SOLUTION 1,000 ML IV SCH (12:31)
--- NOTE | 2016-11-09 14:08 | PN ---
GI Progress Note Subjective: GI F/U PT FEELS FINE S/P ERCP NO N/V/F/C/S SLIGHT ABD DISCOMFORT FEELS HUNGRY AND WOULD LIKE SIOLID FOOD TOLERATED CLEARS PO - Objective Vital Signs: Vital Signs Temperature 97.9 F 11/09/16 05:33 Pulse Rate 75 11/09/16 05:33 Respiratory Rate 18 11/09/16 05:33 Blood Pressure 115/62 11/09/16 05:33 O2 Sat by Pulse Oximetry (%) 99 11/08/16 21:40 Constitutional: Well Nourished, No Distress, Calm Eyes: Yes: WNL Neck: Yes: Supple Gastrointestinal Inspection: Yes: WNL (+bs/SOFT/MIN DIFFUSE TENDERNESS) Labs: CBC, BMP 11/09/16 06:00 11/09/16 06:00 INR, PTT INR 1.25 (0.82-1.09) H 11/08/16 10:15 Assessment/Plan CBD STONES S/P ERCP/SPHINCTEROTOMY AND BALLON STONE EXTRACTION PER DR RUSSELL NO ADVERSE SEQ. EXAM BENIGN LABS ALL IMPROVED ADVANCE DIET OUTPATIENT GI F/U 2-3 WEEKS MD LAINA
[2016-11-10] MEDS: SODIUM CHLORIDE 1,000 ML IV SCH (01:32)
[2016-11-10] MEDS: METRONIDAZOLE 500 MG PREMIXED 100 ML IVPB SCH ×2 (01:33→09:42)
[2016-11-10] MEDS: LACTATED RINGERS SOLUTION 1,000 ML IV SCH (06:48)
[2016-11-10 07:26] LABS: BASOPHIL 0.4 % (0-2.0); MCH 25.7 pg (25.7-33.7); MCHC 32.1 g/dl (32.0-36.0); MEAN CELL VOLUME 80.1 fl (80-96); NEUTROPHILS 72.8 % (42.8-82.8); PLATELET COUNT 177 K/MM3 (134-434); RDW 16.6 % (11.6-15.6); WHITE BLOOD COUNT 9.5 K/mm3 (4.0-10.0)
[2016-11-10 07:56] LABS: ALBUMIN 2.7 g/dl (3.4-5.0); ANION GAP 10 (8-16); CALCIUM 8.2 mg/dL (8.5-10.1); CO2 25 mmol/L (21-32); GLUCOSE,RANDOM 90 mg/dL (74-106)
[2016-11-10 08:01] LABS: ALK PHOS 93 U/L (45-117); AMYLASE 97 U/L (25-115); BILIRUBIN,TOTAL 0.5 mg/dL (0.2-1.0); CREATININE 0.7 mg/dL (0.55-1.02); SGOT/AST 11 U/L (15-37); SGPT/ALT 31 U/L (12-78)
[2016-11-10] MEDS ORDERED: PT OWN MED DRAWER 7, Y5N ONE (09:31)
[2016-11-10] MEDS: FLUoxetine HCL 20 MG CAPSULE (FP) PO SCH (09:42)
[2016-11-10] MEDS: PANTOPRAZOLE 40 MG TABLET (FP) PO SCH (09:42)
[2016-11-10] MEDS: lamoTRIgine 100 MG TABLET (FP) PO SCH (09:43)
[2016-11-10] MEDS: buPROPion HCL 75 MG TABLET PO SCH (09:43)
[2016-11-10] MEDS: LEVOFLOXACIN 500 MG IVPB 100 ML IVPB SCH (10:57)
[2016-11-10] MEDS ORDERED: LEVOFLOXACIN 750 MG TABLET PO ONE (11:05)
--- NOTE | 2016-11-10 11:30 | DS ---
Physical Examination Vital Signs: Vital Signs Temperature 98.4 F 11/10/16 06:00 Pulse Rate 71 11/10/16 06:00 Respiratory Rate 18 11/10/16 06:00 Blood Pressure 106/55 11/10/16 06:00 O2 Sat by Pulse Oximetry (%) 99 11/09/16 21:00 Constitutional: Yes: Calm Eyes: No: Sclera Icterus Cardiovascular: Yes: Regular Rate and Rhythm Respiratory: Yes: Regular Gastrointestinal: Yes: Soft, Distention, Hypoactive Bowel Sounds. No: Tenderness Edema: No Neurological: Yes: Alert, Oriented Labs: CBC, BMP 11/10/16 06:00 11/10/16 06:00 Discharge Summary Reason For Visit: ABDOMINAL PAIN Current Active Problems Abdominal pain (Acute) Acute cholangitis due to calculus of bile duct with obstruction (Acute) Choledocholithiasis (Acute) Anxiety on Rx Depression on Rx Procedures: Principal: ERCP, IV antibiotics, MRCP and CAT Scan Other Procedures: Lab tests; blood cultures Hospital Course: Slowly improved with pain decreased and tolerated diet. Condition: Improved - Instructions Diet, Activity, Other Instructions: Low fat diet as tolerated See Dr. Davis/ [place] Wheat within [address] Crockett within 2 weeks if able Referrals: Jared Crockett MD [Primary Care Provider] - Belkis Davis MD [Staff Physician] - Disposition: HOME - Home Medications Comprehensive Discharge Medication List: Ambulatory Orders Lamotrigine [Lamictal] 200 mg PO DAILY 01/10/13 BUPROPion HCL [Wellbutrin] 75 mg PO DAILY 06/20/13 Fluoxetine HCl [Prozac] 20 mg PO DAILY 06/21/13 Levofloxacin [Levaquin] 500 mg PO DAILY #5 tab 11/10/16 Metronidazole [Flagyl -] 500 mg PO TID #15 tablet 11/10/16 Pantoprazole Sodium [Protonix -] 40 mg PO DAILY #30 tablet.ec 11/10/16
[2016-11-10 12:13] VITALS: BP 126/75; PULSE 80; TEMP 97.9
[2016-11-10] MEDS ORDERED: metroNIDAZOLE 250 MG TABLET PO SCH (14:00)
[2016-11-11] MEDS ORDERED: LEVOFLOXACIN 500 MG TABLET (FP) PO SCH (06:00)
== END 2016-11-10 13:38 | disposition home or self-care (01) | DRG 445 ==
LOC: JER 14:26 → JERBED 11-07 00:06 → UNDOADMIN 11-07 01:04 → J7W 11-07 01:32 → JERBED 11-07 01:32
PROVIDERS: ADMIT Internal Medicine Geriatric Medicine; ATTEND Internal Medicine Geriatric Medicine
PROC: 0F798DZ Dilation of Common Bile Duct with Intraluminal Device, Via Natural or Artificial Opening Endoscopic (ICD-10-PCS; 2016-11-08)
PROC: 0FC98ZZ Extirpation of Matter from Common Bile Duct, Via Natural or Artificial Opening Endoscopic (ICD-10-PCS; principal; 2016-11-08 11:00)
DX: K80.33 Calculus of bile duct with acute cholangitis with obstruction (principal); F41.9 Anxiety disorder, unspecified; F32.9 Major depressive disorder, single episode, unspecified; K57.90 Diverticulosis of intestine, part unspecified, without perforation or abscess without bleeding
CPT/HCPCS: 36415; 74177-TC; 74181-TC; 76000-TC; 76705-TC; 80048; 80053; 80076; 81003; 81015; 82150; 82248; 83690; 84703; 85025; 85610; 85651; 86140; 87040; 87086; 93005; 93010; 99283-25

== ENCOUNTER 2017-03-27 12:23 | Day surgery (SDC) | payer OTHER ==
[2017-03-27 12:55] VITALS: BMI 32.1
[2017-03-27] MEDS ORDERED: PROPOFOL 20 ML ONE ×2 (13:26)
[2017-03-27] MEDS ORDERED: LIDOCAINE HCL 2% JELLY 10 ML CARTRIDGE ONE (13:34)
[2017-03-27 14:26] VITALS: TEMP 98.6
[2017-03-27 14:49] LABS: BASOPHIL 0.4 % (0-2.0); EOSINOPHIL 0.4 % (0-4.5); MCH 26.7 pg (25.7-33.7); MCHC 32.1 g/dl (32.0-36.0); MEAN CELL VOLUME 83.1 fl (80-96); MEAN PLT VOLUME 8.8 fl (7.5-11.1); NEUTROPHILS 74.2 % (42.8-82.8); PLATELET COUNT 177 K/MM3 (134-434); RDW 16.5 % (11.6-15.6); WHITE BLOOD COUNT 11.1 K/mm3 (4.0-10.0)
[2017-03-27 15:35] VITALS: BP 123/71; PULSE 76
== END 2017-03-27 15:39 | disposition home or self-care (01) ==
LOC: JASU-ENDO 12:23
PROVIDERS: ATTEND Internal Medicine Gastroenterology
PROC: 0DJD8ZZ Inspection of Lower Intestinal Tract, Via Natural or Artificial Opening Endoscopic (ICD-10-PCS; principal; 2017-03-27 12:30)
DX: K60.2 Anal fissure, unspecified (principal); K64.8 Other hemorrhoids
CPT/HCPCS: 36415; 84703; 85025; 86140

== ENCOUNTER 2017-11-27 09:00 | Emergency (ER) | payer OTHER ==
[2017-11-27 09:19] VITALS: BP 108/42; PULSE 76; TEMP 98.5; BMI 31.6
[2017-11-27] MEDS ORDERED: SODIUM CHLORIDE 1,000 ML IV STA (09:38)
[2017-11-27] MEDS ORDERED: morphine CARPU-JECT 8 MG/1 ML DISP.SYRIN IVPUSH ONE (09:38)
[2017-11-27] MEDS ORDERED: FAMOTIDINE IV 20 MG/12 ML VIAL IVPUSH ONE (09:40)
[2017-11-27] MEDS ORDERED: FAMOTIDINE 20 MG/50 ML IVPB 20 MG/50 ML MG IVPB ONE (09:59)
[2017-11-27] MEDS ORDERED: morphine CARPU-JECT 4 MG/1 ML DISP.SYRIN ONE (09:59)
[2017-11-27 10:00] LABS: BASO % 0.5 % (0-2.0); EOS % 0.5 % (0-4.5); HEMATOCRIT 38.5 % (32.4-45.2); HEMOGLOBIN 12.4 GM/dL (10.7-15.3); LYMPH % 17.8 % (8-40); MCH 27.5 pg (25.7-33.7); MCHC 32.3 g/dl (32.0-36.0); MEAN PLT VOLUME 9.1 fl (7.5-11.1); MONO % 5.3 % (3.8-10.2); NEUT % 75.9 % (42.8-82.8); PLATELET COUNT 213 K/MM3 (134-434); RBC 4.53 M/mm3 (3.60-5.2); RDW 14.8 % (11.6-15.6); WHITE BLOOD COUNT 10.1 K/mm3 (4.0-10.0)
[2017-11-27 10:26] LABS: ALBUMIN 3.6 g/dl (3.4-5.0); ANION GAP 7 (8-16); BILIRUBIN,TOTAL 0.5 mg/dL (0.2-1.0); BLOOD UREA NITROGEN 22 mg/dL (7-18); CHLORIDE 104 mmol/L (98-107); CO2 28 mmol/L (21-32); GLUCOSE,RANDOM 105 mg/dL (74-106); LIPASE 163 U/L (73-393); MAGNESIUM 1.9 mg/dL (1.8-2.4); SGOT/AST 17 U/L (15-37); SGPT/ALT 20 U/L (12-78); SODIUM 139 mmol/L (136-145); TOT PROT 7.8 g/dl (6.4-8.2)
[2017-11-27 10:29] LABS: ALK PHOS 77 U/L (45-117)
[2017-11-27 10:31] LABS: URINE APPEARANCE SLCLOUDY; URINE BILIRUBIN NEGATIVE (NEGATIVE); URINE BLOOD 1+ (NEGATIVE); URINE COLOR DKYELLOW; URINE GLUCOSE (UA) NEGATIVE (NEGATIVE); URINE KETONE TRACE (NEGATIVE); URINE NITRITE NEGATIVE (NEGATIVE); URINE PROTEIN NEGATIVE (NEGATIVE)
[2017-11-27 10:40] LABS: URINE LEUK ESTERASE 1+ (NEGATIVE)
--- NOTE | 2017-11-27 10:41 | PDOC ---
History of Present Illness - History of Present Illness Initial Comments: 11/27/17 11:04 The patient is a 42 year old female with a significant PMH of pancreatitis and cholecystectomy who presents to the emergency department with left CVA pain that began approximately at 9pm last night. The patient states the left CVA pain radiates to the left-mid abdomen and describes it as sharp, pressure-like pain. The patient notes that drinking coffee this morning hurt to swallow and the left CVA pain was worsened by eating. The patient states she took 2 percocets yesterday and 2 percocets again this morning and notes the symptoms are now mild. The patient reports she called her primary care physician, Dr. Crockett, who told her to come to the ER today for further evaluation. The patient states this does not feel like her gallstones in the past. The patient denies any history of kidney stones. The patient denies chest pain, shortness of breath, headache and dizziness. Denies fever, chills, nausea, vomit, diarrhea and constipation. Denies dysuria, frequency, urgency and hematuria. Allergies: penicillins Past surgical history: cholecystectomy Social history: No reported alcohol, drug, or cigarette use. PCP: Dr. Crockett <Kae Yoon - Last Filed: 11/27/17 11:09> - General History Source: Patient Exam Limitations: No Limitations <Mor Dhillon - Last Filed: 11/27/17 15:05> - General Chief Complaint: Pain, Acute Stated Complaint: CHEST PAIN, ABD PAIN Time Seen by Provider: 11/27/17 09:30 Past History <Kae Yoon - Last Filed: 11/27/17 11:09> - Past Medical History Anemia: No Asthma: No Cancer: No Cardiac Disorders: No CVA: No COPD: No CHF: No DVT: No Dementia: No Diabetes: No GI Disorders: No Disorders: No HTN: No Hypercholesterolemia: No Liver Disease: No Psychiatric Problems: Yes (depression,anxiety,bipolar) Seizures: No - Surgical History Abdominal Surgery: No Appendectomy: No Cardiac Surgery: No Cholecystectomy: Yes Neurologic Surgery: No Orthopedic Surgery: No - Immunization History Immunization Up to Date: Yes - Suicide/Smoking/Psychosocial Hx Smoking Status: No Smoking History: Never smoked Have you smoked in the past 12 months: No Number of Cigarettes Smoked Daily: 0 Information on smoking cessation initiated: No Hx Alcohol Use: No Drug/Substance Use Hx: No Substance Use Type: None Hx Substance Use Treatment: No <Mor Dhillon - Last Filed: 11/27/17 15:05> - Past Medical History Allergies/Adverse Reactions: Allergies Allergy/AdvReac Type Severity Reaction Status Date / Time Penicillins Allergy Rash Verified 11/27/17 09:10 Home Medications: Ambulatory Orders Lamotrigine [Lamictal] 200 mg PO DAILY 01/10/13 BUPROPion HCL [Wellbutrin] 75 mg PO DAILY 06/20/13 Fluoxetine HCl [Prozac] 20 mg PO DAILY 06/21/13 Polyethylene Glycol 3350 [Miralax 255 gm Btl] 17 gm PO DAILY #1 bottle 03/27/17 Ranitidine HCl [Zantac] 150 mg PO BID PRN #14 tablet 11/27/17 Review of Systems - Review of Systems Able to Perform ROS?: Yes Comments:: 11/27/17 11:07 GENERAL/CONSTITUTIONAL: No fever or chills. No weakness. HEAD, EYES, EARS, NOSE AND THROAT: No change in vision. No ear pain or discharge. No sore throat. CARDIOVASCULAR: No chest pain or shortness of breath. RESPIRATORY: No cough, wheezing, or hemoptysis. GASTROINTESTINAL: No nausea, vomiting, diarrhea or constipation. GENITOURINARY: (+) Left CVA pain radiating to the left mid abdomen. No dysuria, frequency, or change in urination. MUSCULOSKELETAL: No joint or muscle swelling or pain. No neck or back pain. SKIN: No rash NEUROLOGIC: No headache, vertigo, loss of consciousness, or change in strength/ sensation. ENDOCRINE: No increased thirst. No abnormal weight change. HEMATOLOGIC/LYMPHATIC: No anemia, easy bleeding, or history of blood clots. ALLERGIC/IMMUNOLOGIC: No hives or skin allergy. <Kae Yoon - Last Filed: 11/27/17 11:09> *Physical Exam - Vital Signs Last Vital Signs Temp Pulse Resp BP Pulse Ox 98.5 F 76 16 108/42 99 11/27/17 09:12 11/27/17 09:12 11/27/17 09:12 11/27/17 09:12 11/27/17 09:12 - Physical Exam Comments: 11/27/17 11:07 ADULT EXAM GENERAL: Awake, alert, and fully oriented, in no acute distress HEAD: No signs of trauma EYES: PERRLA, EOMI, sclera anicteric, conjunctiva clear ENT: Auricles normal inspection, hearing grossly normal, nares patent, oropharynx clear without exudates. Moist mucosa NECK: Normal ROM, supple, no lymphadenopathy, JVD, or masses LUNGS: Breath sounds equal, clear to auscultation bilaterally. No wheezes, and no crackles HEART: Regular rate and rhythm, normal S1 and S2, no murmurs, rubs or gallops ABDOMEN: (+) Mild LLQ and LUQ tenderness. Soft, normoactive bowel sounds. No guarding, no rebound. No masses BACK: (+) Left CVA tenderness. EXTREMITIES: Normal range of motion, no edema. No clubbing or cyanosis. No cords, erythema, or tenderness NEUROLOGICAL: Cranial nerves II through XII grossly intact. Normal speech, normal gait SKIN: Warm, Dry, normal turgor, no rashes or lesions noted. <aKe Yoon - Last Filed: 11/27/17 11:09> - Vital Signs Last Vital Signs Temp Pulse Resp BP Pulse Ox 98.5 F 76 16 108/42 99 11/27/17 09:12 11/27/17 09:12 11/27/17 09:12 11/27/17 09:12 11/27/17 09:12 <Mor Dhillon - Last Filed: 11/27/17 15:05> Heart Score/ECG Review #1 ECG reviewed & interpreted by me at: 09:05 11/27/17 10:36 NSR 73, no std/dragan, normal axis, normal intervals, QTC 429 msec <Mor Dhillon - Last Filed: 11/27/17 15:05> ED Treatment Course - LABORATORY CBC & Chemistry Diagram: 11/27/17 09:53 11/27/17 09:53 - ADDITIONAL ORDERS Additional order review: Laboratory Results 11/27/17 11/27/17 09:53 09:44 Sodium 139 Potassium 5.0 Chloride 104 Carbon Dioxide 28 Anion Gap 7 L BUN 22 H Creatinine 1.0 Creat Clearance w eGFR > 60 Random Glucose 105 Calcium 9.0 Magnesium 1.9 Total Bilirubin 0.5 AST 17 ALT 20 Alkaline Phosphatase 77 Creatine Kinase 44 Troponin I < 0.02 Total Protein 7.8 Albumin 3.6 Lipase 163 Urine Color Dkyellow Urine Appearance Slcloudy Urine pH 5.0 Ur Specific [place] 1.028 Urine Protein Negative Urine Glucose (UA) Negative Urine Ketones Trace H Urine Blood 1+ H Urine Nitrite Negative Urine Bilirubin Negative Urine Urobilinogen 2.0 H Ur Leukocyte Esterase 1+ H 11/27/17 09:53 RBC 4.53 MCV 85.0 MCHC 32.3 RDW 14.8 D MPV 9.1 Neutrophils % 75.9 Lymphocytes % 17.8 Monocytes % 5.3 Eosinophils % 0.5 Basophils % 0.5 - Medications Given in the ED: ED Medications Discontinued Medications Generic Name Dose Route Start Last Admin Trade Name Freq PRN Reason Stop Dose Admin Sodium Chloride 1,000 mls @ 1,000 mls/hr 11/27/17 09:38 11/27/17 09:57 Normal Saline - IV 11/27/17 10:37 1,000 mls/hr ASDIR STA Administration Famotidine 20 mg in 12 mls @ 144 mls/hr 11/27/17 09:40 11/27/17 09:57 Pepcid 20 Mg/12 Ml Push IVPUSH 11/27/17 09:44 144 mls/hr ONCE ONE Administration Morphine Sulfate 4 mg 11/27/17 09:38 11/27/17 09:57 Morphine Sulfate IVPUSH 11/27/17 09:39 4 mg ONCE ONE Administration <Kae Yoon - Last Filed: 11/27/17 11:09> - LABORATORY CBC & Chemistry Diagram: 11/27/17 09:53 11/27/17 09:53 - ADDITIONAL ORDERS Additional order review: Laboratory Results 11/27/17 09:53 Sodium 139 Potassium 5.0 Chloride 104 Carbon Dioxide 28 Anion Gap 7 L BUN 22 H Creatinine 1.0 Creat Clearance w eGFR > 60 Random Glucose 105 Calcium 9.0 Magnesium 1.9 Total Bilirubin 0.5 AST 17 ALT 20 Alkaline Phosphatase 77 Creatine Kinase 44 Troponin I < 0.02 Total Protein 7.8 Albumin 3.6 Lipase 163 11/27/17 09:53 RBC 4.53 MCV 85.0 MCHC 32.3 RDW 14.8 D MPV 9.1 Neutrophils % 75.9 Lymphocytes % 17.8 Monocytes % 5.3 Eosinophils % 0.5 Basophils % 0.5 - RADIOLOGY Radiology Studies Ordered: Category Date Time Status SPIRAL- RENAL-STONE CT [CT] Stat CT Scan 11/27/17 09:38 Ordered - Medications Given in the ED: ED Medications Discontinued Medications Generic Name Dose Route Start Last Admin Trade Name Felicia PRN Reason Stop Dose Admin Famotidine 20 mg in 12 mls @ 144 mls/hr 11/27/17 09:40 11/27/17 09:57 Pepcid 20 Mg/12 Ml Push IVPUSH 11/27/17 09:44 144 mls/hr ONCE ONE Administration Morphine Sulfate 4 mg 11/27/17 09:38 11/27/17 09:57 Morphine Sulfate IVPUSH 11/27/17 09:39 4 mg ONCE ONE Administration <Mor Dhillon - Last Filed: 11/27/17 15:05> Medical Decision Making - Medical Decision Making 11/27/17 10:36 A portion of this note was documented by scribe services under my direction. I have reviewed the details of the note, within reason, and agree with the documentation with the following case summary and management plan written by me. Patient treated in the ED. Nursing notes are reviewed and incorporated into the medical decision-making. Vital signs reviewed. Peripheral IV access obtained by the nurse, laboratory studies are drawn and sent, reviewed and interpreted by myself. Vital Signs Temp Pulse Resp BP Pulse Ox 98.5 F 76 16 108/42 99 11/27/17 09:12 11/27/17 09:12 11/27/17 09:12 11/27/17 09:12 11/27/17 09:12 42-year-old female with past medical history of cholecystectomy presents to the emergency department for left flank pain since yesterday. Patient reports that the pain initially started yesterday night and rebound to the left mid abdomen. No fevers, chills, cough, vomiting, diarrhea, dysuria. Stated she had taken 2 Percocets which improved the pain. Woke up this morning with similar pain and again took 2 Percocets. Patient had called her primary care physician Dr. Crockett who sent the patient to the ED. Differential includes polynephritis versus kidney stone versus gastritis. We'll obtain labs, urinalysis, spiral CT. Reassess. 11/27/17 14:58 CAT scan demonstrates no acute findings. Does demonstrate colonic fecal retention which is probable. CBC, BMP 11/27/17 09:53 11/27/17 09:53 CMP Sodium 139 mmol/L (136-145) 11/27/17 09:53 Potassium 5.0 mmol/L (3.5-5.1) 11/27/17 09:53 Chloride 104 mmol/L (98-107) 11/27/17 09:53 Carbon Dioxide 28 mmol/L (21-32) 11/27/17 09:53 Anion Gap 7 (8-16) L 11/27/17 09:53 BUN 22 mg/dL (7-18) H 11/27/17 09:53 Creatinine 1.0 mg/dL (0.55-1.02) 11/27/17 09:53 Creat Clearance w eGFR > 60 (>60) 11/27/17 09:53 Random Glucose 105 mg/dL (74-106) 11/27/17 09:53 Calcium 9.0 mg/dL (8.5-10.1) 11/27/17 09:53 Magnesium 1.9 mg/dL (1.8-2.4) 11/27/17 09:53 Total Bilirubin 0.5 mg/dL (0.2-1.0) 11/27/17 09:53 AST 17 U/L (15-37) 11/27/17 09:53 ALT 20 U/L (12-78) 11/27/17 09:53 Alkaline Phosphatase 77 U/L (45-117) 11/27/17 09:53 Creatine Kinase 44 IU/L (26-192) 11/27/17 09:53 Troponin I < 0.02 ng/ml (0.00-0.05) 11/27/17 09:53 Total Protein 7.8 g/dl (6.4-8.2) 11/27/17 09:53 Albumin 3.6 g/dl (3.4-5.0) 11/27/17 09:53 Lipase 163 U/L (73-393) 11/27/17 09:53 Serum , Qual Negative 11/27/17 09:44 Urine Test Results Urine Color Dkyellow 11/27/17 09:44 Urine Appearance Slcloudy 11/27/17:44 Urine pH 5.0 (5.0-8.0) 11/27/17 09:44 Ur Specific [place] 1.028 (1.001-1.035) 11/27/17 09:44 Urine Protein Negative (NEGATIVE) 11/27/17 09:44 Urine Glucose (UA) Negative (NEGATIVE) 11/27/17 09:44 Urine Ketones Trace (NEGATIVE) H 11/27/17 09:44 Urine Blood 1+ (NEGATIVE) H 11/27/17 09:44 Urine Nitrite Negative (NEGATIVE) 11/27/17 09:44 Urine Bilirubin Negative (NEGATIVE) 11/27/17 09:44 Ur Leukocyte Esterase 1+ (NEGATIVE) H 11/27/17 09:44 Ur Epithelial Cells Moderate /HPF (FEW) 11/27/17:44 Urine Bacteria Rare /hpf (NONE SEEN) 11/27/17:44 Urine Mucus Rare 11/27/17 09:44 The patient reports feeling better. After re-examining the patient, the patient' s left sided CVA tenderness has resolved. No fever, WBC 10.1. The patient has UA that is very equivocal. Given no fever, no dysuria, will NOT treat as pyelonphritis and allow the urine cultures to grow. The patient does have constipation on CT scan. Will give magnesium citrate and discharge on miralax ( which patient already has home). Will treat as constipation at this time. I had also informed the patient that gastritis could be the situation and will prescribe pepcid. Given these circumstances, the patient desires to go home and follow up with Dr. Crockett. I had given her return precautions if the symptoms worsen. I discussed the physical exam findings, ancillary test results and final diagnoses with the patient. I answered all of the patient's questions. The patient was satisfied with the care received and felt comfortable with the discharge plan and treatment plan. The patient will call their primary care physician within 24 hours to arrange follow-up and will return to the Emergency Department with any new, persistant or worsening symptoms. <Mor Dhillon - Last Filed: 11/27/17 15:05> *DC/Admit/Observation/Transfer - Attestations Scribe Attestion: 11/27/17 11:08 Documentation prepared by Kae Yoon, acting as medical laboratory technical officer for Mor Dhillon MD. <Kae Yoon - Last Filed: 11/27/17 11:09> - Discharge Dispostion Admit: No <Mor Dhillon - Last Filed: 11/27/17 15:05> Diagnosis at time of Disposition: Flank pain - Discharge Dispostion Disposition: HOME Condition at time of disposition: Improved - Prescriptions Prescriptions: Ranitidine HCl [Zantac] 150 mg PO BID PRN #14 tablet PRN Reason: GERD - Referrals Referrals: Jared Crockett MD [Primary Care Provider] - - Patient Instructions Printed Discharge Instructions: DI for Flank Pain, DI for Abdominal Pain-Adult Additional Instructions: You have received magnesium citrate here (for constipation). Take 1 capful (17 gram) of miralax daily for 7 days. Drink plenty of fluids and rest. Follow up with your doctor. - Post Discharge Activity
[2017-11-27 11:09] LABS: EPI CELLS MODERATE /HPF (FEW); URINE BACTERIA RARE /hpf (NONE SEEN); URINE HYALINE CAST 6 /lpf; URINE MUCUS RARE
[2017-11-27] MEDS ORDERED: morphine CARPU-JECT 4 MG/1 ML DISP.SYRIN IVPUSH ONE (13:32)
[2017-11-27] MEDS ORDERED: MAGNESIUM CITRATE 300 ML BOTTLE PO ONE (13:51)
[2017-11-27] MEDS ORDERED: KETOROLAC TROMETHAMINE 30 MG/1 ML VIAL IVPUSH ONE (13:51)
[2017-11-27] MEDS ORDERED: KETOROLAC TROMETHAMINE 30 MG/1 ML VIAL ONE (14:06)
[2017-11-27] MEDS ORDERED: MAGNESIUM CITRATE 300 ML BOTTLE ONE (14:07)
--- NOTE | 2017-11-27 14:57 | EKG ---
Test Reason : Blood Pressure : / mmHG Vent. Rate : 073 BPM Atrial Rate : 073 BPM P-R Int : 138 ms QRS Dur : 090 ms QT Int : 390 ms P-R-T Axes : 052 044 047 degrees QTc Int : 429 ms NORMAL SINUS RHYTHM NORMAL ECG WHEN COMPARED WITH ECG OF 08-NOV-2016 10:14, NO SIGNIFICANT CHANGE WAS FOUND Confirmed by JANUARY PRESTON MD ([id number]) on 11/27/2017 2:56:49 PM Referred By: Confirmed By:JANUARY PRESTON MD
== END 2017-11-27 15:34 | disposition home or self-care (01) ==
LOC: JER 09:00
PROC: 3E033GC Introduction of Other Therapeutic Substance into Peripheral Vein, Percutaneous Approach (ICD-10-PCS; principal; 2017-11-27)
PROC: 3E033NZ Introduction of Analgesics, Hypnotics, Sedatives into Peripheral Vein, Percutaneous Approach (ICD-10-PCS; 2017-11-27)
PROC: 3E0333Z Introduction of Anti-inflammatory into Peripheral Vein, Percutaneous Approach (ICD-10-PCS; 2017-11-27)
DX: R10.32 Left lower quadrant pain (principal); F41.9 Anxiety disorder, unspecified; F31.9 Bipolar disorder, unspecified
CPT/HCPCS: 36415; 74176; 80053; 81003; 81015; 82550; 83690; 83735; 84484; 84703; 85025; 87086; 93005; 93010; 99283-25

== ENCOUNTER 2022-01-28 14:11 | Emergency (ER) | payer OTHER ==
[2022-01-28 14:30] VITALS: BP 128/80; PULSE 83; TEMP 97.9; BMI 37.4
== END 2022-01-28 14:59 | disposition home or self-care (01) ==
LOC: JERFT 14:11
DX: S60.445A External constriction of left ring finger, initial encounter (principal); W49.04XA Ring or other jewelry causing external constriction, initial encounter
CPT/HCPCS: 99281-25

== ENCOUNTER 2024-02-09 19:20 | Emergency (ER) | payer OTHER ==
[2024-02-09 19:35] VITALS: BP 109/73; PULSE 80; RESP 16; TEMP 97.7; BMI 31.6
[2024-02-09 19:58] LABS: HEMATOCRIT 38.5 % (32.4-45.2); HEMOGLOBIN 12.5 G/dL (10.7-15.3); MCH 27.9 pg (25.7-33.7); MCHC 32.4 g/dl (32.0-36.0); MEAN CELL VOLUME 86.1 fl (80-96); MEAN PLT VOLUME 8.7 fl (7.5-11.1); PLATELET COUNT 216.6 10^3/uL (134-434); RBC 4.47 10^6/uL (3.60-5.2); RDW 15.1 % (11.6-15.6); WHITE BLOOD COUNT 11.4 10^3/uL (4.0-10.8)
[2024-02-09 20:18] LABS: ALBUMIN 4.1 g/dl (3.4-5.0); BILIRUBIN,TOTAL 0.5 mg/dl (0.2-1); CALCIUM 9.5 mg/dl (8.5-10.1); CREATININE 1.1 mg/dl (0.6-1.3); POTASSIUM 4.3 mmol/L (3.5-5.1); TOT PROT 7.3 g/dl (6.4-8.2)
[2024-02-09] MEDS ORDERED: ONDANSETRON 4 MG/2 ML VIAL ONE (21:45)
[2024-02-09] MEDS: ONDANSETRON 4 MG/2 ML VIAL IVPUSH ONE (21:50)
== END 2024-02-09 23:17 | disposition home or self-care (01) ==
LOC: FER 19:20
PROC: 3E030GC Introduction of Other Therapeutic Substance into Peripheral Vein, Open Approach (ICD-10-PCS; principal; 2024-02-09)
DX: R10.31 Right lower quadrant pain (principal); R11.0 Nausea
CPT/HCPCS: 36415; 74177-TC; 80053; 81003; 84703; 85027; 87086; 99285-25; Q9967

== ENCOUNTER 2024-04-23 09:18 | Day surgery (SDC) | payer OTHER ==
[2024-04-14 15:44] VITALS: BMI 33.3
[2024-04-23] MEDS ORDERED: ONDANSETRON 4 MG/2 ML VIAL ONE (10:35)
[2024-04-23] MEDS ORDERED: GLYCOPYRROLATE 0.2 MG/1 ML VIAL ONE (10:35)
[2024-04-23 10:52] VITALS: RESP 16
[2024-04-23 11:37] VITALS: BP 100/59; PULSE 73; TEMP 97.2
== END 2024-04-23 11:20 | disposition home or self-care (01) ==
LOC: FASU-ENDO 09:18
PROVIDERS: ATTEND Internal Medicine Gastroenterology
PROC: 0DB68ZX Excision of Stomach, Via Natural or Artificial Opening Endoscopic, Diagnostic (ICD-10-PCS; 2024-04-23)
PROC: 0DB48ZX Excision of Esophagogastric Junction, Via Natural or Artificial Opening Endoscopic, Diagnostic (ICD-10-PCS; 2024-04-23)
PROC: 0DB98ZX Excision of Duodenum, Via Natural or Artificial Opening Endoscopic, Diagnostic (ICD-10-PCS; principal; 2024-04-23 10:37)
DX: K29.50 Unspecified chronic gastritis without bleeding (principal); K20.90 Esophagitis, unspecified without bleeding
CPT/HCPCS: 81025; 88305-TC; 88342-TC